=== PATIENT | female | born 2005 | race Caucasian/White ===

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

== ENCOUNTER 2025-01-14 15:31 | Emergency (ER) | payer BC, SELFPAY ==
[2025-01-14 15:40] VITALS: BP 115/69; PULSE 93; RESP 20; TEMP 36.6; O2SAT 100
--- NOTE | 2025-01-14 15:43 | ED_ITS ---
HPI - Eye Problem General Chief complaint: Eye Problems Stated complaint: Eyes Irritation Time Seen by Provider: 01/14/25 15:44 Source: patient and RN notes reviewed Mode of arrival: ambulatory Limitations: no limitations History of Present Illness HPI Narrative: 19-year-old female presents concern for left eye irritation, redness, discharge. She reports symptoms started last night she woke up with her eye crusted shut this morning. She works at a daycare, she reports is due to take her has similar symptoms today. She reports she normally wears contact lenses, she has been wearing her glasses. chief complaint: eye redness Related Data Home Medications ?Medication ?Instructions ?Recorded ?Confirmed ?Last Taken ?Type cetirizine 10 mg tablet (24Hour 10 mg PO DAILY PRN all ergy symptoms 09/04/24 Unknown History Allergy) Allergies Allergy/AdvReac Type Severity Reaction Status Date / Time cephalexin AdvReac Intermediate Diarrhea Verified 01/14/25 15:44 Review of Systems Review of Systems: CONSTITUTIONAL: Denies malaise, chills, sweats, or fever. EYES: Denies visual changes. Reports left eye redness, irritation, discharge. ENT: Denies rhinorrhea, congestion, sinus pain, otalgia or sore throat. SKIN: Denies rash or itching. NEUROLOGIC: Denies numbness, weakness, or headache. PSYCHIATRIC: Denies anxiety or depression. All systems reviewed & are unremarkable except as noted in HPI and below PMFSH Past Medical History Medical History Asthma Surgical History Surgical History No pertinent past surgical history Social History Social History Smoking status: Never smoker Alcohol intake: never Substance use: never Living arrangements: with family Gender identity (if verbalized by the patient): Female Comments At time of signature, agree with nursing past medical, surgical, social and family history. There is no relevant family history pertinent to the presenting complaint Exam Narrative: GENERAL: Well-appearing, well-nourished, and in no acute distress. HEAD: Normocephalic, atraumatic. EYES: PERRLA and EOMI. No nystagmus. Left sclera and conjunctivae injected. Upper and lower eyelid unremarkable, no periorbital edema noted ENT: Nares clear, turbinates pink, no rhinorrhea or epistaxis. Mucous membranes moist. TM pearly gonzalez with sharp light reflex bilaterally; no tragal tenderness. NECK: Supple. CHEST: No respiratory distress. Speaks in full sentences. HEART: Regular rate and rhythm. SKIN: Warm, dry, no visible rash. NEURO: Alert and oriented x3. PSYCH: Normal mood and affect Course Course Emergency Course: Patient is aware of diagnosis, understands and agrees to treatment plan. Anticipatory guidance given. Patient agrees to follow-up as directed and is aware of reasons to seek care at the emergency department. Portions of this record may have been created with voice recognition software Level of Care: Express Care Visit Vital Signs Vital signs: Vital Signs Temperature 97.8 F 01/14/25 15:40 Pulse Rate 93 01/14/25 15:40 Respiratory Rate 20 01/14/25 15:40 Blood Pressure 115/69 01/14/25 15:40 Pulse Oximetry 100 01/14/25 15:40 Oxygen Delivery Room Air 01/14/25 15:40 Temperature 97.8 F 01/14/25 15:40 Pulse Rate 93 01/14/25 15:40 Respiratory Rate 20 01/14/25 15:40 Blood Pressure 115/69 01/14/25 15:40 Pulse Oximetry 100 01/14/25 15:40 Oxygen Delivery Room Air 01/14/25 15:40 Reviewed. MDM - Eye Problem MDM Narrative Medical decision making narrative: Consideration of the following conditions may be warranted for the presenting problem, they are not final diagnoses: Bacterial conjunctivitis, allergic conjunctivitis, viral conjunctivitis, foreign body, blepharitis, chalazion, hordeolum, corneal abrasion, preseptal cellulitis, orbital cellulitis. No evidence of proptosis, ophthalmoplegia, vision loss, pain with eye movement. Exam findings show no acute concerns or changes; patient is non-toxic appearing and is in no distress. Patient is appropriate for outpatient treatment and follow-up. Critical Care Time Critical Care Time Critical Care Time: No Discharge Plan Discharge Clinical Impression: Bacterial conjunctivitis Patient Disposition: Home Condition: Stable Instructions: Conjunctivitis (ED) Additional Instructions: Do not touch or rub your eye. Use a warm or cool washcloth on your eye for comfort Use eyedrops as directed Practice good handwashing and hygiene to prevent spread of infection You may take Tylenol or ibuprofen for pain Follow-up with PCP or milk driver if condition is not improving in 2-3days. Go to the emergency room if you have pain behind your eye, pressure behind your eye, difficulty seeing, or other severe symptoms Patient Language: Bermudian Prescriptions: New polymyxin B sulf-trimethoprim 10,000 unit- 1 mg/mL drops 1 drp LEFT EYE Q3H 7 Days Qty: 10 0RF Rx Instructions: while awake; do not exceed 6 doses in 24 hours No Action cetirizine [24Hour Allergy] 10 mg tablet 10 mg PO DAILY PRN (Reason: allergy symptoms) Follow-up/Referrals: PHYSICIAN,ASSOCIATE PROFESSOR OF MEDIA ARTS [Primary Care Provider, Internal Medicine] Time of Disposition: 15:48
== END 2025-01-14 15:55 | disposition home or self-care (01) ==
PROVIDERS: Emergency Provider Nurse Practitioner
DX: H10.9 Unspecified conjunctivitis (principal); J45.909 Unspecified asthma, uncomplicated
CPT/HCPCS: 99213; G0463